=== PATIENT | female | born 1970 | race Caucasian/White ===

== ENCOUNTER 2017-06-23 15:28 | Emergency (ER) | payer OTHER ==
[~2017-06-23] VITALS: Ht 162.6 cm; Wt 130.0 kg
[~2017-06-23 15:28] MED LIST: AMOXICILLIN500 MG PO; AMOXICILLIN875 MG PO; AUGMENTIN875TAB OR; AUGMENTIN875TAB PO; BACLOFEN20 MG PO; BUSPAR10 M1 PO; CALCI17 PO; CIPROFLOXACN500 MG PO; CLARITIN10 M1 PO; CYANOCOBALAM1000 MCG IJ; CYANOCOBALAM1000 MCG IM; CYANOCOBALAM1000 MCG PO; DARVOCET-N 100100 MG OR; DEPO; DEPO-PROVER150 MG/ML IM; ELIMITE5 % TOP; FLEXERIL OR; FLEXERIL PO; FLONASE NASAL50 MCG; GLIPIZIDE5 M2 PO; IMITREX25 MG PO; IMITREX50 M1 PO; KEFLEX500 MG OR; LEVAQUIN500 MG PO; LORTAB 10-325 M1 TAB PO; MACRODANTIN100 MG PO; MEDDOSEPAK PO; MEDROXYPR A150 MG/M1 IM; MELOXICAM7.5 MG PO; METFORMIN500 MG PO; MULTI 501 PO; NAPROSYN500 MG PO; NAPROXEN375 MG PO; NO; NO HOME MEDS; NYSTATIN100000 M3 TOP; OMNICEF300 MG PO; PREDNISONE10 MG PO; PYRIDIUM200 MG PO; TRAMADOL HCL100 MG PO; TRAMADOL HCL50 MG PO; ULTRAM50 M1 PO; ULTRAM50 MG OR; ULTRAM50 MG PO; paxil PO
[2017-06-23] MEDS ORDERED: VOLTAREN1%GEL TOP (16:12)
[2017-06-23] MEDS ORDERED: TRAMADOL HCL50 MG PO (16:12)
[2017-06-23] MEDS ORDERED: GABAPENTIN100 MG PO (16:13)
[2017-06-23] MEDS ORDERED: IMITREX100 MG PO (16:13)
[2017-06-23] MEDS ORDERED: VENTOLIN HFA IN (16:18)
[2017-06-23] MEDS ORDERED: TESSALON PER100 MG PO (16:18)
[2017-06-23] MEDS ORDERED: ZITHROMAX250 MG PO (16:18)
[2017-06-23] MEDS ORDERED: PREDNISONE50 MG PO (16:18)
[2017-06-23] MEDS ORDERED: AFRIN 12 HOUR0.05 % (16:18)
[2017-06-23 16:45] VITALS: BP 132/86
== END 2017-06-23 16:45 | disposition home or self-care (01) | DRG 203 ==
LOC: ED 15:28
DX: J40 Bronchitis, not specified as acute or chronic (principal); F17.210 Nicotine dependence, cigarettes, uncomplicated; M19.90 Unspecified osteoarthritis, unspecified site; Z98.84 Bariatric surgery status

== ENCOUNTER 2018-04-28 04:48 | Emergency (ER) | payer OTHER ==
[~2018-04-28] VITALS: Ht 162.6 cm; Wt 110.0 kg
[~2018-04-28 04:48] MED LIST changes: +AFRIN 12 HOUR0.05 %; +GABAPENTIN100 MG PO; +IMITREX100 MG PO; +PREDNISONE50 MG PO; +TESSALON PER100 MG PO; +VENTOLIN HFA IN; +VOLTAREN1%GEL TOP; +ZITHROMAX250 MG PO
[2018-04-28] MEDS ORDERED: LORTAB 1010 MG PO (04:58)
[2018-04-28 05:50] LABS: HEMATOCRIT 42.9 % (37.0-47.0); HEMOGLOBIN 14.5 g/dl (12.0-16.0); IMMATURE GRANULOCYTES 0.1 % (0.0-1.0); MEAN CELL VOLUME 89.9 fL CALC (80.0-100.0); MEAN CORPUSCULAR HGB 30.4 pG CALC (26.0-32.0); MEAN CORPUSCULAR HGB CONC 33.8 g/L CALC (32.0-36.0); NEUT# 3.28 thou/uL (2.00-7.15); RED BLOOD COUNT 4.77 mill/uL (4.20-5.60); RED CELL DISTRI WIDTH 12.5 % (11.5-15.5)
[2018-04-28 05:50] LABS: URINE BILIRUBIN - DIPSTICK NEGATIVE (NEGATIVE); URINE BLOOD DIPSTICK LARGE (NEGATIVE); URINE COLOR YELLOW; URINE GLUCOSE - DIPSTICK NEGATIVE (NEGATIVE); URINE KETONE NEGATIVE (NEGATIVE); URINE LEUK ESTERASE TRACE (NEGATIVE); URINE NITRITE - DIPSTICK NEGATIVE (Negative); URINE PH 5.5 (4.5-8.0); URINE PROTEIN - DIPSTICK 30 mg/dL (NEG-TRACE); URINE SPECIFIC GRAVITY 1.025; URINE UROBILINOGEN - DIPSTICK 0.2 E.U./dL (0.2)
[2018-04-28 05:53] LABS: URINE CLARITY TURBID
[2018-04-28 05:55] LABS: URINE BACTERIA FEW hpf; URINE MUCUS MODERATE hpf (NONE-FEW); URINE RBC 25-50 RBC/hpf (0-5); URINE SQUAMOUS EPITHELIAL CELL FEW EPI/hpf (0-FEW)
[2018-04-28 05:56] LABS: ALBUMIN 3.7 g/dL (3.2-5.0); ALKALINE PHOSPHATASE 137 u/l (38-126); ANION GAP 14 (6-22 (CALC)); BILIRUBIN, TOTAL 0.3 mg/dL (0.0-1.4); BUN 13 mg/dL (7-17); BUN/CREATININE RATIO 19 (12-20 (CALC)); CARBON DIOXIDE 25 mmol/l (22-30); CHLORIDE 110 mmol/l (95-108); CREATININE 0.7 mg/dL (0.5-1.0); GFR > 60 ML/MIN (>=60 (CALC)); GFR FOR AFR.AMER. > 60 ML/MIN (>=60 (CALC)); POTASSIUM 4.3 mmol/l (3.5-5.1); SGOT/AST 15 u/l (14-36); SGPT/ALT 29 u/l (9-52); SODIUM 143 mmol/l (137-146); TOTAL PROTEIN 6.7 g/dL (6.3-8.2)
[2018-04-28] MEDS ORDERED: PERCOCET 5/321 COMBO PO (07:00)
[2018-04-28] MEDS ORDERED: TAMSULOSIN0.4 MG PO (07:00)
[2018-04-28 07:15] VITALS: BP 123/69
== END 2018-04-28 07:15 | disposition home or self-care (01) ==
LOC: ED 04:48
PROVIDERS: Family Medicine
DX: N13.2 Hydronephrosis with renal and ureteral calculous obstruction (principal); M54.5 Low back pain; R10.31 Right lower quadrant pain; F17.210 Nicotine dependence, cigarettes, uncomplicated; R11.0 Nausea; Z87.442 Personal history of urinary calculi

== ENCOUNTER 2018-05-05 05:19 | Emergency (ER) | payer OTHER ==
[~2018-05-05] VITALS: Ht 162.6 cm; Wt 109.4 kg
[~2018-05-05 05:19] MED LIST changes: +LORTAB 1010 MG PO; +PERCOCET 5/321 COMBO PO; +TAMSULOSIN0.4 MG PO
[2018-05-05 06:05] LABS: HEMATOCRIT 42.2 % (37.0-47.0); HEMOGLOBIN 14.3 g/dl (12.0-16.0); IMMATURE GRANULOCYTES 0.1 % (0.0-1.0); MEAN CELL VOLUME 90.2 fL CALC (80.0-100.0); MEAN CORPUSCULAR HGB 30.6 pG CALC (26.0-32.0); MEAN CORPUSCULAR HGB CONC 33.9 g/L CALC (32.0-36.0); NEUT# 3.15 thou/uL (2.00-7.15); RED BLOOD COUNT 4.68 mill/uL (4.20-5.60); RED CELL DISTRI WIDTH 12.5 % (11.5-15.5)
[2018-05-05 06:06] LABS: URINE BILIRUBIN - DIPSTICK NEGATIVE (NEGATIVE); URINE BLOOD DIPSTICK LARGE (NEGATIVE); URINE COLOR YELLOW; URINE GLUCOSE - DIPSTICK NEGATIVE (NEGATIVE); URINE KETONE TRACE mg/dL (NEGATIVE); URINE LEUK ESTERASE TRACE (NEGATIVE); URINE NITRITE - DIPSTICK NEGATIVE (Negative); URINE PH 5.5 (4.5-8.0); URINE PROTEIN - DIPSTICK 100 mg/dL (NEG-TRACE); URINE SPECIFIC GRAVITY >=1.030; URINE UROBILINOGEN - DIPSTICK 0.2 E.U./dL (0.2)
[2018-05-05 06:16] LABS: URINE BACTERIA MODERATE hpf; URINE CLARITY CLOUDY; URINE MUCUS FEW hpf (NONE-FEW); URINE RBC TNTC RBC/hpf (0-5); URINE SQUAMOUS EPITHELIAL CELL FEW EPI/hpf (0-FEW)
[2018-05-05 06:20] LABS: ALKALINE PHOSPHATASE 139 u/l (38-126); ANION GAP 12 (6-22 (CALC)); BILIRUBIN, TOTAL 0.5 mg/dL (0.0-1.4); BUN 11 mg/dL (7-17); BUN/CREATININE RATIO 16 (12-20 (CALC)); CARBON DIOXIDE 25 mmol/l (22-30); CHLORIDE 109 mmol/l (95-108); CREATININE 0.7 mg/dL (0.5-1.0); GFR > 60 ML/MIN (>=60 (CALC)); GFR FOR AFR.AMER. > 60 ML/MIN (>=60 (CALC)); POTASSIUM 3.9 mmol/l (3.5-5.1); SGOT/AST 25 u/l (14-36); SGPT/ALT 26 u/l (9-52); SODIUM 142 mmol/l (137-146); TOTAL PROTEIN 7.2 g/dL (6.3-8.2)
[2018-05-05] MEDS ORDERED: TORADOL PO (06:49)
[2018-05-05] MEDS ORDERED: BACTRIM DS1 TAB PO (06:49)
[2018-05-05] MEDS ORDERED: CEPHALEXIN500 MG PO (07:29)
[2018-05-05] MEDS ORDERED: TAMSULOSIN0.4 MG PO (07:29)
[2018-05-05 07:30] VITALS: BP 109/58
[2018-05-05] MEDS ORDERED: LORTAB 5/3255 MG PO (16:52)
== END 2018-05-05 07:40 | disposition home or self-care (01) ==
LOC: ED 05:19
PROVIDERS: Emergency Medicine
DX: N13.2 Hydronephrosis with renal and ureteral calculous obstruction (principal); Z87.442 Personal history of urinary calculi; F17.210 Nicotine dependence, cigarettes, uncomplicated; R10.31 Right lower quadrant pain

== ENCOUNTER 2018-05-07 06:53 | Emergency (ER) | payer OTHER ==
[~2018-05-07] VITALS: Ht 162.6 cm; Wt 113.6 kg
[~2018-05-07 06:53] MED LIST changes: +BACTRIM DS1 TAB PO; +CEPHALEXIN500 MG PO; +LORTAB 5/3255 MG PO; +TORADOL PO
[2018-05-07 07:45] VITALS: BP 131/67
== END 2018-05-07 07:45 | disposition left against medical advice (07) ==
LOC: ED 06:53 → ED-I 07:01 → ED 07:01 → ED-I 07:08 → ED 07:45
DX: N20.0 Calculus of kidney (principal); G89.29 Other chronic pain; M54.9 Dorsalgia, unspecified; F17.210 Nicotine dependence, cigarettes, uncomplicated; Z91.19 Patient's noncompliance with other medical treatment and regimen; Z98.84 Bariatric surgery status

== ENCOUNTER 2018-06-04 18:56 | Emergency (ER) | payer OTHER ==
[~2018-06-04] VITALS: Ht 160 cm; Wt 110.4 kg
[2018-06-04] MEDS ORDERED: PREDNISONE10 MG PO (19:16)
[2018-06-04 19:25] VITALS: BP 140/80
== END 2018-06-04 19:25 | disposition home or self-care (01) ==
LOC: ED 18:56
DX: M77.9 Enthesopathy, unspecified (principal); F17.210 Nicotine dependence, cigarettes, uncomplicated; G89.29 Other chronic pain; M54.9 Dorsalgia, unspecified; M25.531 Pain in right wrist; M25.431 Effusion, right wrist

== ENCOUNTER 2020-03-21 23:20 | Emergency (ER) | payer OTHER ==
[2020-03-22 00:01] LABS: IMMATURE GRANULOCYTES 0.3 % (0.0-5.0); MEAN CORPUSCULAR HGB 27.5 pG CALC (26.0-32.0); MEAN CORPUSCULAR HGB CONC 32.7 g/dL CAL (32.0-36.0); NEUT# 6.44 thou/uL (2.00-7.15); RED BLOOD COUNT 4.29 mill/uL (4.20-5.60); RED CELL DISTRI WIDTH 13.7 % (11.5-15.5)
[2020-03-22 00:04] LABS: HEMATOCRIT 36.1 % (37.0-47.0); HEMOGLOBIN 11.8 g/dl (12.0-16.0); MEAN CELL VOLUME 84.1 fL CALC (80.0-100.0)
[2020-03-22 00:21] LABS: ALBUMIN 4.2 g/dL (3.2-5.0); ALKALINE PHOSPHATASE 161 u/l (38-126); ANION GAP 13 (6-22 (CALC)); BILIRUBIN, TOTAL 0.3 mg/dL (0.0-1.4); BUN 10 mg/dL (7-17); BUN/CREATININE RATIO 14 (12-20 (CALC)); CARBON DIOXIDE 20 mmol/l (22-30); CHLORIDE 107 mmol/l (95-108); CREATININE 0.7 mg/dL (0.5-1.0); GFR > 60 ML/MIN (>=60 (CALC)); GFR FOR AFR.AMER. > 60 ML/MIN (>=60 (CALC)); POTASSIUM 3.4 mmol/l (3.5-5.1); SGOT/AST 16 u/l (14-36); SODIUM 136 mmol/l (137-146); TOTAL PROTEIN 7.1 g/dL (6.3-8.2)
[2020-03-22 00:22] LABS: URINE BILIRUBIN - DIPSTICK NEGATIVE (NEGATIVE); URINE BLOOD DIPSTICK LARGE (NEGATIVE); URINE COLOR YELLOW; URINE GLUCOSE - DIPSTICK NEGATIVE (NEGATIVE); URINE KETONE NEGATIVE (NEGATIVE); URINE LEUK ESTERASE TRACE (NEGATIVE); URINE NITRITE - DIPSTICK NEGATIVE (Negative); URINE PH 5.5 (4.5-8.0); URINE PROTEIN - DIPSTICK 30 mg/dL (NEG-TRACE); URINE SPECIFIC GRAVITY >=1.030; URINE UROBILINOGEN - DIPSTICK 0.2 E.U./dL (0.2)
[2020-03-22 00:23] LABS: URINE BACTERIA MODERATE hpf; URINE EPITHELIAL CELLS MODERATE EPI/hpf (0-FEW); URINE RBC >100 RBC/hpf (0-5)
[2020-03-22 02:30] VITALS: BP 151/71
[2020-03-22] MEDS ORDERED: HYDROCO/APAP1 TA9 PO (02:46)
[2020-03-22] MEDS ORDERED: CIPROFLOXACN500 MG PO (02:46)
[2020-03-22] MEDS ORDERED: TAMSULOSIN0.4 MG PO (02:46)
[2020-03-22] MEDS ORDERED: ZOFRAN4 MG/TAB PO (02:46)
== END 2020-03-22 03:00 | disposition home or self-care (01) ==
LOC: ED 23:20
DX: M54.41 Lumbago with sciatica, right side (principal); N23 Unspecified renal colic; N39.0 Urinary tract infection, site not specified; F17.200 Nicotine dependence, unspecified, uncomplicated; Z87.442 Personal history of urinary calculi

== ENCOUNTER 2020-10-03 07:07 | Emergency (ER) | payer OTHER ==
[~2020-10-03] VITALS: Ht 160 cm; Wt 118.0 kg
[~2020-10-03 07:07] MED LIST changes: +HYDROCO/APAP1 TA9 PO; +ZOFRAN4 MG/TAB PO
[2020-10-03] MEDS ORDERED: TRAMADOL HCL50 MG PO (07:36)
[2020-10-03] MEDS ORDERED: CYCLOBENZAPRINE10 MG PO (07:37)
[2020-10-03 09:20] VITALS: BP 175/74
== END 2020-10-03 09:27 | disposition home or self-care (01) ==
LOC: ED 07:07
DX: M79.671 Pain in right foot (principal); F17.200 Nicotine dependence, unspecified, uncomplicated

== ENCOUNTER 2021-05-11 09:12 | Emergency (ER) | payer OTHER ==
[~2021-05-11] VITALS: Ht 160 cm; Wt 118.0 kg
[~2021-05-11 09:12] MED LIST changes: +CYCLOBENZAPRINE10 MG PO
[2021-05-11 10:04] LABS: HEMATOCRIT 27.8 % (37.0-47.0); HEMOGLOBIN 8.5 g/dl (12.0-16.0); IMMATURE GRANULOCYTES 0.1 % (0.0-5.0); MEAN CELL VOLUME 77.7 fL CALC (80.0-100.0); MEAN CORPUSCULAR HGB 23.7 pG CALC (26.0-32.0); MEAN CORPUSCULAR HGB CONC 30.6 g/dL CAL (32.0-36.0); NEUT# 3.95 thou/uL (2.00-7.15); RED BLOOD COUNT 3.58 mill/uL (4.20-5.60); RED CELL DISTRI WIDTH 15.6 % (11.5-15.5)
[2021-05-11 10:19] LABS: URINE BILIRUBIN - DIPSTICK NEGATIVE (NEGATIVE); URINE BLOOD DIPSTICK LARGE (NEGATIVE); URINE COLOR YELLOW; URINE GLUCOSE - DIPSTICK NEGATIVE (NEGATIVE); URINE KETONE NEGATIVE (NEGATIVE); URINE PROTEIN - DIPSTICK TRACE mg/dL (NEG-TRACE); URINE SPECIFIC GRAVITY 1.025; URINE UROBILINOGEN - DIPSTICK 0.2 E.U./dL (0.2)
[2021-05-11 10:23] LABS: URINE LEUK ESTERASE SMALL (NEGATIVE); URINE NITRITE - DIPSTICK NEGATIVE (Negative)
[2021-05-11 10:26] LABS: URINE BACTERIA MODERATE hpf; URINE EPITHELIAL CELLS MODERATE EPI/hpf (0-FEW); URINE WBC 20-50 WBC/hpf (0-5)
[2021-05-11 10:32] LABS: ALBUMIN 3.8 g/dL (3.2-5.0); ALKALINE PHOSPHATASE 158 u/l (38-126); ANION GAP 14 (6-22 (CALC)); BILIRUBIN, TOTAL 0.3 mg/dL (0.0-1.4); BUN 10 mg/dL (7-17); BUN/CREATININE RATIO 18 (12-20 (CALC)); CARBON DIOXIDE 21 mmol/l (22-30); CHLORIDE 109 mmol/l (95-108); CREATININE 0.6 mg/dL (0.5-1.0); GFR > 60 ML/MIN (>=60 (CALC)); GFR FOR AFR.AMER. > 60 ML/MIN (>=60 (CALC)); LIPASE 552 u/l (23-300); POTASSIUM 4.1 mmol/l (3.5-5.1); SGOT/AST 17 u/l (14-36); SODIUM 139 mmol/l (137-146); TOTAL PROTEIN 6.9 g/dL (6.3-8.2)
[2021-05-11] MEDS ORDERED: OMNI-PAC300 MG PO (12:18)
[2021-05-11] MEDS ORDERED: HYOSCYAMINE0.125 M3 PO (12:18)
[2021-05-11 12:38] VITALS: BP 183/62
== END 2021-05-11 12:35 | disposition home or self-care (01) ==
LOC: ED 09:12
PROVIDERS: Family Medicine
DX: R10.11 Right upper quadrant pain (principal); R10.12 Left upper quadrant pain; N39.0 Urinary tract infection, site not specified; E66.01 Morbid (severe) obesity due to excess calories; F17.200 Nicotine dependence, unspecified, uncomplicated; Z98.84 Bariatric surgery status
CPT/HCPCS: Q9967

== ENCOUNTER 2022-01-29 17:52 | Emergency (ER) | payer OTHER ==
[~2022-01-29] VITALS: Ht 160 cm; Wt 110.9 kg
[2022-01-29] VITALS (12 sets, daily range): BP systolic 124–176; BP diastolic 57–122
[~2022-01-29 17:52] MED LIST changes: +HYOSCYAMINE0.125 M3 PO; +OMNI-PAC300 MG PO
[2022-01-29 18:48] LABS: HEMATOCRIT 25.3 % (37.0-47.0); IMMATURE GRANULOCYTES 0.5 % (0.0-5.0); MEAN CORPUSCULAR HGB CONC 27.7 g/dL CAL (32.0-36.0); NEUT# 3.45 thou/uL (2.00-7.15); RED BLOOD COUNT 3.68 mill/uL (4.20-5.60); RED CELL DISTRI WIDTH 18.5 % (11.5-15.5)
[2022-01-29 18:50] LABS: MEAN CELL VOLUME 68.8 fL CALC (80.0-100.0)
[2022-01-29 19:14] LABS: ALBUMIN 3.8 g/dL (3.2-5.0); ALKALINE PHOSPHATASE 147 u/l (38-126); BILIRUBIN, TOTAL 0.3 mg/dL (0.0-1.4); BUN 10 mg/dL (7-17); BUN/CREATININE RATIO 13 (12-20 (CALC)); CARBON DIOXIDE 22 mmol/l (22-30); CHLORIDE 110 mmol/l (95-108); CREATININE 0.7 mg/dL (0.5-1.0); GFR > 60 ML/MIN (>=60 (CALC)); GFR FOR AFR.AMER. > 60 ML/MIN (>=60 (CALC)); LIPASE 1487 u/l (23-300); SGOT/AST 22 u/l (14-36); SODIUM 141 mmol/l (137-146); TOTAL PROTEIN 6.9 g/dL (6.3-8.2)
[2022-01-29 19:16] LABS: ANION GAP 12 (6-22 (CALC)); POTASSIUM 3.1 mmol/l (3.5-5.1)
[2022-01-29 19:24] LABS: PROTHROMBIN TIME 10.2 SECONDS (9.0-12.5)
[2022-01-29 20:20] LABS: URINE BILIRUBIN - DIPSTICK NEGATIVE (NEGATIVE); URINE BLOOD DIPSTICK LARGE (NEGATIVE); URINE COLOR YELLOW; URINE GLUCOSE - DIPSTICK NEGATIVE (NEGATIVE); URINE KETONE NEGATIVE (NEGATIVE); URINE PROTEIN - DIPSTICK 100 mg/dL (NEG-TRACE); URINE SPECIFIC GRAVITY 1.025; URINE UROBILINOGEN - DIPSTICK 0.2 E.U./dL (0.2)
[2022-01-29 20:23] LABS: URINE LEUK ESTERASE MODERATE (NEGATIVE); URINE NITRITE - DIPSTICK NEGATIVE (Negative)
[2022-01-29 20:26] LABS: URINE RBC 25-50 RBC/hpf (0-5); URINE SQUAMOUS EPITHELIAL CELL FEW EPI/hpf (0-FEW)
[2022-01-29] MEDS ORDERED: CHROMAGEN1 CAP PO (20:50)
[2022-01-31] MEDS ORDERED: METOPROLOL SUCC50 MG PO (13:39)
[2022-01-31] MEDS ORDERED: TRAMADOL HYDROC50 M1 (13:39)
== END 2022-01-29 22:56 | disposition home or self-care (01) ==
LOC: ED 17:52
PROVIDERS: Nurse Practitioner
DX: D50.0 Iron deficiency anemia secondary to blood loss (chronic) (principal); Z72.0 Tobacco use; R19.5 Other fecal abnormalities; K92.2 Gastrointestinal hemorrhage, unspecified; E87.6 Hypokalemia; R74.8 Abnormal levels of other serum enzymes; N20.0 Calculus of kidney
CPT/HCPCS: P9016; S0164

== ENCOUNTER 2022-02-08 08:38 | Day surgery (SDC) | payer OTHER ==
[~2022-02-08] VITALS: Ht 160 cm; Wt 108.9 kg
[~2022-02-08 08:38] MED LIST changes: +CHROMAGEN1 CAP PO; +METOPROLOL SUCC50 MG PO; +NORVASC5 M1 PO; +TRAMADOL HYDROC50 M1 PO
[2022-02-08] MEDS ORDERED: OMEPRAZOLE20 MG PO (10:25)
[2022-02-08 11:08] VITALS: BP 152/84
== END 2022-02-08 11:05 | disposition home or self-care (01) ==
LOC: ENDO 08:38 → ORM 11:00 → ENDO 11:05
PROVIDERS: ATTEND Surgery
DX: D64.9 Anemia, unspecified (principal); K95.89 Other complications of other bariatric procedure; K44.9 Diaphragmatic hernia without obstruction or gangrene; K64.8 Other hemorrhoids; I10 Essential (primary) hypertension; N20.0 Calculus of kidney; Y83.2 Surgical operation with anastomosis, bypass or graft as the cause of abnormal reaction of the patient, or of later complication, without mention of misadventure at the time of the procedure; Z98.84 Bariatric surgery status

== ENCOUNTER 2024-07-24 06:16 | Emergency (ER) | payer OTHER ==
[2024-07-24] VITALS (8 sets, daily range): BP systolic 109–155; BP diastolic 49–87
[~2024-07-24] VITALS: Ht 160 cm; Wt 108.0 kg
[~2024-07-24 06:16] MED LIST changes: +FLEXERIL5 M1 PO; +OMEPRAZOLE20 MG PO
[2024-07-24] MEDS ORDERED: HYDROcodone 5 MG/Acetaminophen 325 MG/COMBO PO ONE (06:30)
[2024-07-24] MEDS ORDERED: DEXAMETHASONE 2 MG/TAB TAB PO ONE (06:40)
== END 2024-07-24 08:45 | disposition home or self-care (01) | DRG 605 ==
LOC: ED 06:16
DX: S60.211A Contusion of right wrist, initial encounter (principal); S80.01XA Contusion of right knee, initial encounter; F17.200 Nicotine dependence, unspecified, uncomplicated; W01.0XXA Fall on same level from slipping, tripping and stumbling without subsequent striking against object, initial encounter; Y92.009 Unspecified place in unspecified non-institutional (private) residence as the place of occurrence of the external cause

== ENCOUNTER 2024-12-08 11:52 | Emergency (ER) | payer SELFPAY ==
[2024-12-08] VITALS (9 sets, daily range): BP systolic 132–159; BP diastolic 73–85
[~2024-12-08] VITALS: Ht 160 cm; Wt 107.9 kg
[2024-12-08] MEDS ORDERED: Diph, Acellular Pertussis, Tet 0.5 ML/VIAL (Tdap) SDV IM ONE (12:40)
[2024-12-08] MEDS ORDERED: DICLOFENAC SODIUM2 % TD (13:57)
== END 2024-12-08 14:13 | disposition home or self-care (01) | DRG 563 ==
LOC: ED 11:52
DX: S53.401A Unspecified sprain of right elbow, initial encounter (principal); S50.11XA Contusion of right forearm, initial encounter; S00.83XA Contusion of other part of head, initial encounter; W01.0XXA Fall on same level from slipping, tripping and stumbling without subsequent striking against object, initial encounter; Y92.009 Unspecified place in unspecified non-institutional (private) residence as the place of occurrence of the external cause; F17.200 Nicotine dependence, unspecified, uncomplicated
CPT/HCPCS: 90715